=== PATIENT | male | born 1995 | race Caucasian/White ===

== ENCOUNTER 2017-05-20 20:33 | Emergency (ER) | payer MEDICAID ==
[~2017-05-20] VITALS: Ht 175.3 cm; Wt 59.1 kg
[~2017-05-20 20:33] MED LIST: ONDA4TAB6 PO
[2017-05-20 20:42] VITALS: BP 118/56
== END 2017-05-20 22:10 | disposition left against medical advice (07) ==
LOC: ER 20:34
DX: M25.571 Pain in right ankle and joints of right foot (principal); Z53.21 Procedure and treatment not carried out due to patient leaving prior to being seen by health care provider